=== PATIENT | female | born 1975 | race Two or more races ===

== ENCOUNTER 2023-06-24 13:10 | Emergency (ER) | payer MEDICAID, OTHER ==
[~2023-06-24] VITALS: Ht 149.9 cm; Wt 69.0 kg
[2023-06-24] MEDS ORDERED: LABETALOL HCL 5 MG/ML 4ML SYRINGE IV ONE ×3 (13:45→18:45)
[2023-06-24 14:55] LABS: Basophils # (auto) 0.1 10 ^3/uL (0-0.2); Basophils % (auto) 0.8 % (0.0-2.0); Eosinophils # (auto) 0.2 10 ^3/uL (0-0.8); Eosinophils % (auto) 1.7 % (0.0-7.0); Hematocrit 43.7 % (36.0-46.0); Hemoglobin 14.7 g/dL (12.2-16.2); Lymphocytes # (auto) 2.1 10 ^3/uL (0.4-5.4); Lymphocytes % (auto) 22.6 % (10.0-50.0); Mean Corpuscular Hemoglobin 28.3 pg (28.0-32.0); Mean Corpuscular Hgb Conc. 33.7 g/dL (32.0-36.0); Monocytes # (auto) 0.5 10 ^3/uL (0-1.3); Monocytes % (auto) 4.7 % (0.0-12.0); Neutrophils # (auto) 6.7 10 ^3/uL (1.6-8.6); Neutrophils % (auto) 70.2 % (37.0-80.0); Red Cell Distribution Width 13.7 % (11.8-14.3); White Blood Cell 9.5 10^3/uL (4.4-10.8)
[2023-06-24 15:00] LABS: Urine Bacteria MANY /hpf (None Seen); Urine Blood Negative /uL (Negative); Urine Clarity HAZY (Clear); Urine Color Yellow (Yellow); Urine Mucus FEW (None Seen); Urine Protein, UAD 2+ (Negative); Urine Specific Gravity 1.019 (1.001-1.035); Urine Urobilinogen Normal (Negative); Urine WBC 20 /hpf (0 - 5); Urine pH 6.5 (5.0-8.0)
[2023-06-24 15:16] LABS: Alanine Aminotransferase 61 U/L (7-40); Albumin 4.8 g/dL (3.2-4.8); Alkaline Phosphatase 129 U/L (46-116); Anion Gap 6 (5-15); Aspartate Aminotransferase 62 U/L (13-40); BUN/Creatinine Ratio 10.6 (10.0-20.0); Blood Urea Nitrogen 7 mg/dL (9-23); Calcium 9.4 mg/dL (8.7-10.4); Carbon Dioxide 27 mmol/L (20-30); Chloride 104 mmol/L (98-107); Glucose 209 mg/dL (74-106); Magnesium 1.6 mg/dL (1.6-2.6); Potassium 3.7 mmol/L (3.5-5.1); Sodium 137 mmol/L (136-145)
[2023-06-24 15:17] LABS: Bilirubin, Total 1.3 mg/dL (0.2-1.0); Total Protein 7.9 g/dL (5.7-8.2)
[2023-06-24 16:25] VITALS: PULSE 93; RESP 12; O2SAT 99
[2023-06-24] MEDS ORDERED: PRED20TA2 PO (16:29)
[2023-06-24] MEDS ORDERED: VALA500T33 PO (16:29)
[2023-06-24] MEDS ORDERED: NITR-87 PO (16:29)
[2023-06-24] MEDS ORDERED: predniSONE 20 MG TAB PO ONE (16:30)
[2023-06-24] MEDS ORDERED: HYDROcodone-ACET 5/325MG TAB PO ONE (18:45)
[2023-06-24 19:45] VITALS: PULSE 91; RESP 19; O2SAT 95
[2023-06-24] MEDS ORDERED: hydrALAZINE HCL 20 MG/ML VL IV ONE (20:30)
[2023-06-24 20:58] VITALS: TEMP 98
[2023-06-24 22:12] VITALS: BP 155/91; PULSE 85; RESP 15; O2SAT 95
== END 2023-06-24 22:20 | disposition home or self-care (01) ==
LOC: EDBD 13:10 → ER 13:10
DX: G51.0 Bell's palsy (principal); N39.0 Urinary tract infection, site not specified; E78.5 Hyperlipidemia, unspecified; E11.9 Type 2 diabetes mellitus without complications; I10 Essential (primary) hypertension; Z98.51 Tubal ligation status
CPT/HCPCS: 36415; 70450; 80053; 81001; 83735; 84484; 85025; 93005; 96374; 96375; 96376; 99285; J0360; J3490; J7512

== ENCOUNTER 2025-01-21 17:27 | Inpatient (IN) | payer MEDICAID ==
[~2025-01-21] VITALS: Ht 149.9 cm; Wt 70.5 kg
[~2025-01-21 17:27] MED LIST: NITR-87 PO; PRED20TA2 PO; VALA500T33 PO
--- NOTE | 2025-01-21 17:49 | ECG ---
[facility] Test Date: 2025-01-21 Test Time: 17:46:36 Pat Name: PARAG OLIVERA Department: ER Room: 0270T Gender: F Nursing Specialist: SOBIA : 1975 Requested By: RONNY BLISS Order Number: [id number] Reading MD: Tobin Maldonado Measurements Intervals [place] Rate: 89 P: 56 TN: 155 QRS: 19 QRSD: 74 T: -22 QT: 348 QTc: 424 Interpretive Statements Sinus rhythm Borderline T abnormalities, diffuse leads Electronically Signed On 01-26-2025 20:30:58 PDT by Tobin Maldonado Please click the below link to view image of tracing.
[2025-01-21 18:20] LABS: Basophils # (auto) 0.1 10 ^3/uL (0-0.2); Basophils % (auto) 0.8 % (0.0-2.0); Eosinophils # (auto) 0.1 10 ^3/uL (0-0.8); Eosinophils % (auto) 1.1 % (0.0-7.0); Hematocrit 45.2 % (36.0-46.0); Hemoglobin 15.5 g/dL (12.2-16.2); Lymphocytes # (auto) 3.1 10 ^3/uL (0.4-5.4); Lymphocytes % (auto) 30.9 % (10.0-50.0); Mean Corpuscular Hemoglobin 29.1 pg (28.0-32.0); Mean Corpuscular Hgb Conc. 34.3 g/dL (32.0-36.0); Mean Corpuscular Volume 84.9 fL (80.0-100.0); Monocytes # (auto) 0.5 10 ^3/uL (0-1.3); Monocytes % (auto) 4.6 % (0.0-12.0); Neutrophils # (auto) 6.2 10 ^3/uL (1.6-8.6); Neutrophils % (auto) 62.6 % (37.0-80.0); Nucleated Red Blood Cells % 0.1 %; Platelet Count (auto) 222 10^3/uL (140-450); Red Blood Cells 5.33 10^6/uL (4.0-5.20); Red Cell Distribution Width 13.4 % (11.8-14.3); White Blood Cell 9.9 10^3/uL (4.4-10.8)
[2025-01-21 18:37] VITALS: PULSE 84; RESP 15; O2SAT 97
[2025-01-21 18:38] LABS: Alanine Aminotransferase 33 U/L (7-40); Anion Gap 10 (5-15); Aspartate Aminotransferase 26 U/L (13-40); BUN/Creatinine Ratio 17.1 (10.0-20.0); Blood Urea Nitrogen 13 mg/dL (9-23); Carbon Dioxide 28 mmol/L (20-31); Chloride 104 mmol/L (98-107); Sodium 142 mmol/L (136-145)
--- NOTE | 2025-01-21 18:39 | ED.PDOC ---
HPI Comments 49 y/o F presents with c/o HTN, dizziness, bilateral upper and lower extremity numbness, and left-chest discomfort. Patient reports on having numbness to her extremities for the past 2 days. Today, she endorses worsening numbness to her left arm along with additional onset of chest discomfort and dizziness. Noticed her blood pressure being elevated at-home with at-home measuring device. Denies any palpitations, shortness of breath, nausea, vomiting, fever, chills, o r further associated symptoms. Vitals: temperature of 98.3F, pulse of 111, respiratory rate of 16, blood pressure of 151/104, SpO2 of 95%RA Past medical history: DM, HLD, HTN, arthritis, sciatica Past surgical history: tubal ligation OLIVERA: HPI: Poor Historian. REVIEW OF SYSTEMS: CONSTITUTIONAL: Denies acute: fever, diaphoresis, chills, generalized weakness. HEAD: Denies acute: headache, photophobia Eyes: Denies acute: Double vision, vision loss, eye pain, eye discharge. EARS: Denies acute: tinnitus, hearing loss, ear discharge, ear pain, THROAT: Denies acute: sore throat, swelling, difficulty swallowing , pain with swallowing, change in voice. NECK: Denies acute: neck pain, neck swelling, stiff neck. HEART: Denies acute : palpitations, LUNGS: Denies acute: SOB, wheezing, cough, hemoptysis ABDOMEN: Denies acute: abdominal pain, Nausea, Vomiting, diarrhea, melena , hematemesis, hematochezia SKIN: Denies acute: rash, redness, lesions, itchiness. EXTREMITIES: Denies acute: calf pain, , , weakness, denies pain in extremity. Denies acute: Low back pain. Neuro: Denies acute: focal neurological deficit, motor or sensory focal neurological deficit, tremors, seizure like activity, confusion, , change in mental status, loss of bowel or bladder function, cauda equina like symptoms. : Denies acute: dysuria, hematuria, flank pain, increase in urinary frequency. PSYCH: Denies acute: hallucination, suicidal ideation, homicidal ideation. FEMALE: Denies acute: abnormal vaginal bleeding, foul odor, unusual discharge. PHYSICAL EXAM: General: ----mild----acute distress, awake and alert. Head: normocephalic, atraumatic. Neck: supple, trachea is midline, no swelling. Throat: Normal phonation. Eyes:, no erythema, no purulent discharge, no proptosis, no icterus. Heart: regular rate, regular rhythm, no significant murmur appreciated. Lungs: no apparent respiratory distress, Able to speak in full sentences. No wheezing, no rhonchi, no crackles. No stridors Clear to auscultation bilaterally. Abdomen: non tender to palpation, non distended, soft, no guarding, no rebound, + bowel sounds. Neuro: Awake, Alert, oriented to name, self, situation, follows commands GCS=15. Speech is normal. Skin: no petechia, no purpura, no cyanosis, non-pale, not jaundice. Lower extremities: --no - Pitting edema no deformity, no focal swelling, no calf TTP. Makes eye contact. moves all four extremities. Face: no apparent facial droop. Ambulating in the ED independently. ED COURSE: Chief Complaint: Dizziness Time Seen by MD: 18:20 Reviewed Notes: Nurses Notes, Allergies Allergies: Coded Allergies: NO KNOWN ALLERGIES (Unverified , 06/24/23) Home Meds Active Scripts Nitrofurantoin Monohydrate Mac (Macrobid) 100 Mg Cap, 100 MG PO BID for 7 Days, #14 CAP Prov:RONNY BLISS DO 06/24/23 Valacyclovir Hcl (Valacyclovir Hcl) 500 Mg Tab, 1 TAB PO BID for 7 Days, #14 TAB 11 Refills Prov:RONNY BLISS DO 06/24/23 Prednisone (Prednisone) 20 Mg Tab, 60 MG PO DAILY for 6 Days, #18 TAB Prov:RONNY BLISS DO 06/24/23 Information Source: Patient Mode of Arrival: Ambulatory Past Medical History PAST MEDICAL HISTORY: DM, High Lipids, HTN Surgical History: Tubal Ligation 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 Was a procedure done?: No CP Differential Dx Differential Diagnosis: N/A Differential Diagnosis: Other (Ddx include but not limitied to gastritis, musculoskeletal pain, radiculopathy, atypical chest pain, dissection, aneurysm, ACS, unstable angina, hiatal hernia, GERD, anxiety, costochondritis, PE, pn eumothroax, neoplasm, cardiac ischemia, drug abuse, anemia.) X-Ray, Labs, Meds, VS Vital Signs Date Time Temp Pulse Resp B/P (MAP) Pulse Ox O2 Delivery O2 Flow Rate FiO2 01/21/25 21:04 98.7 77 16 141/90 (107) 99 98.7 01/21/25 21:00 77 141/90 01/21/25 18:57 82 150/94 01/21/25 18:39 89 01/21/25 18:37 84 15 97 Room Air* 0 21 01/21/25 18:36 82 16 150/94 (112) 94 01/21/25 17:46 89 01/21/25 17:45 98.3 111 16 151/104 (120) 95 98.3 Lab Test 01/21/25 21:31 01/21/25 20:53 01/21/25 18:55 01/21/25 18:00 Range/Units Urine Color Pending Urine Clarity Pending Urine pH Pending Urine Specific [place] Pending Urine Protein Pending Urine Ketones Pending Urine Blood Pending Urine Nitrite Pending Urine Bilirubin Pending Urine Urobilinogen Pending Urine Leukocyte Esterase Pending Urine RBC Pending Urine Microscopic WBC Pending Urine Squamous Epithelial Cells Pending Urine Bacteria Pending Urine Glucose Pending Troponin I High Sensitivity < 3 L < 3 L < 3 L </=34 ng/L White Blood Count 9.9 4.4-10.8 10^3/uL Red Blood Count 5.33 H 4.0-5.20 10^6/uL Hemoglobin 15.5 12.2-16.2 g/dL Hematocrit 45.2 36.0-46.0 % Mean Corpuscular Volume 84.9 80.0-100.0 fL Mean Corpuscular Hemoglobin 29.1 28.0-32.0 pg Mean Corpuscular Hemoglobin Concent 34.3 32.0-36.0 g/dL Red Cell Distribution Width 13.4 11.8-14.3 % Platelet Count 222 140-450 10^3/uL Mean Platelet Volume 10.1 6.9-10.8 fL Neutrophils (%) (Auto) 62.6 37.0-80.0 % Lymphocytes (%) (Auto) 30.9 10.0-50.0 % Monocytes (%) (Auto) 4.6 0.0-12.0 % Eosinophils (%) (Auto) 1.1 0.0-7.0 % Basophils (%) (Auto) 0.8 0.0-2.0 % Neutrophils # (Auto) 6.2 1.6-8.6 10 ^3/uL Lymphocytes # (Auto) 3.1 0.4-5.4 10 ^3/uL Monocytes # (Auto) 0.5 0-1.3 10 ^3/uL Eosinophils # (Auto) 0.1 0-0.8 10 ^3/uL Basophils # (Auto) 0.1 0-0.2 10 ^3/uL Nucleated Red Blood Cells 0.1 % Sodium Level 142 136-145 mmol/L Potassium Level 3.4 L 3.5-5.1 mmol/L Chloride Level 104 98-107 mmol/L Carbon Dioxide Level 28 20-31 mmol/L Anion Gap 10 5-15 Blood Urea Nitrogen 13 9-23 mg/dL Creatinine 0.76 0.550-1.02 mg/dL Glomerular Filtration Rate Calc 95 >90 mL/min BUN/Creatinine Ratio 17.1 10.0-20.0 Serum Glucose 129 H 74-106 mg/dL Calcium Level 10.8 H 8.7-10.4 mg/dL Magnesium Level 1.6 1.6-2.6 mg/dL Total Bilirubin 1.5 H 0.2-1.0 mg/dL Aspartate Amino Transferase (AST) 26 13-40 U/L Alanine Aminotransferase (ALT) 33 7-40 U/L Alkaline Phosphatase 118 H 46-116 U/L Total Protein 8.3 H 5.7-8.2 g/dL Albumin 5.1 H 3.2-4.8 g/dL Test 01/21/25 17:41 Range/Units POC Glucose 134 H 70-106 mg/dl Current Medications Medications (Trade) Dose Ordered Sig/Shon Route Start Time Stop Time Status Last Admin Labetalol HCl (Labetalol HCl) 5 mg ONCE ONCE IV 5/3/25 18:15 01/21/25 18:16 DC 01/21/25 18:57 Aspirin (Ecotrin Enteric Coated Tablet) 325 mg ONCE ONCE PO 01/21/25 18:30 01/21/25 18:31 DC 01/21/25 18:56 Sodium Chloride 500 ml @ 500 mls/hr Q1H ONCE IV 01/21/25 18:30 01/21/25 19:29 DC 01/21/25 18:57 [place] [id number] Ph: [phone] DIAGNOSTIC IMAGING Diagnostic Imaging Report : [id number] Signed PATIENT: PARAG OLIVERA ACCT: [id number] UNIT: [id number] : 1975 LOC: ER ROOM / BED: / AGE / SEX: 49 / F ADM STATUS: [facility] ER SERVICE 1730 ORDERING PHYSICIAN: RONNY BLISS DO PROCEDURE(s): CXRP - CHEST PORTABLE REASON: htn ORDER NUMBER(s): [id number], ACCESSION NUMBER(s): [id number] CHEST RADIOGRAPH Indication: htn Technique: Single frontal view of the chest was obtained Comparison: None FINDINGS: Lines and Tubes: None Lungs: No focal consolidation. Mild elevation of the right hemidiaphragm. Pleura: No effusion. No pneumothorax. Cardiomediastinal contours: Unremarkable Bones: No acute osseous abnormality. IMPRESSION: No acute cardiopulmonary disease. ATED BY: MIGDALIA MARTINO DO DICTATED DATE/TIME: 01/21/251857 SIGNED BY: MIGDALIA MARTINO DO SIGNED DATE/TIME: 01/21/251857 CC: Time of 1ST Reevaluation: 18:20 Reevaluation 1ST: Unchanged Patient Education/Counseling: Diagnosis, Treatment Family Education/Counseling: No Family Present Comments Patient presented with the above HPI.---chest pain---workup was initiated. patient was found with the above mentioned diagnosis. the following medications were ordered: please refer to order lists of meds and tests obtained by myself Dr. Bliss. Patient ED course and VS have been stabilized. Patient has been reassessed in the ED and remained in a stable condition. Pertinent incidental findings were discussed with the patient and/or family. Patient/family voices understanding and is agreeable with plan. Patient has been observed in the ED adequate length of time to insure improvement/stability. Escalation of care considered: Consideration of escalation to observation or admission Patient was ADMITTED to the medicine team for further evaluation and treatment of their presentation. All the reports of any imaging studies that were ordered by myself were reviewed by myself. Departure 1 Departure Time of Disposition: 21:16 Impression: Primary Impression: Chest pain at rest Disposition: ADMITTED INPATIENT Admit to: Tele Condition: Guarded Discharged With: Self Critical Care Note Critical Care Time?: No Heart Score Heart Score: Heart Score Response (Comments) Value History Moderate Suspicious 1 EKG Normal 0 Age 45-64 1 Risk Factors >3 or Hx ASHD 2 Troponin Normal limit 0 Total 4 I personally scribed for RONNY BLISS DO ([email or web address]) on 01/21/25 at 18:39. Electronically submitted by Claude Stokes ([email or web address]). I personally scribed for RONNY BLISS DO ([email or web address]) on 01/21/25 at 20:01. Electronically submitted by Claude Stokes ([email or web address]). RONNY BLISS DO January 21, 2025 18:39
[2025-01-21 18:43] LABS: Albumin 5.1 g/dL (3.2-4.8); Alkaline Phosphatase 118 U/L (46-116); Bilirubin, Total 1.5 mg/dL (0.2-1.0); Calcium 10.8 mg/dL (8.7-10.4); Glucose 129 mg/dL (74-106); Potassium 3.4 mmol/L (3.5-5.1); Total Protein 8.3 g/dL (5.7-8.2)
[2025-01-21] MEDS: ASPirin-EC 325mg tab PO ONE (18:56)
[2025-01-21] MEDS: SODIUM CHLORIDE 0.9% 500 ML IV ONE (18:57)
[2025-01-21] MEDS: LABETALOL HCL 20 MG/4 ML VL IV ONE (18:57)
[2025-01-21] MEDS: NITROGLYCERIN 0.4 MG SL TAB SL ONE (18:58)
--- NOTE | 2025-01-21 19:00 | DVH ---
CHEST RADIOGRAPH Indication: htn Technique: Single frontal view of the chest was obtained Comparison: None FINDINGS: Lines and Tubes: None Lungs: No focal consolidation. Mild elevation of the right hemidiaphragm. Pleura: No effusion. No pneumothorax. Cardiomediastinal contours: Unremarkable Bones: No acute osseous abnormality. IMPRESSION: No acute cardiopulmonary disease.
[2025-01-21] MEDS ORDERED: MORPHINE SULFATE INJ 2 MG/ml SYRG IV PRN ×2 (21:45)
[2025-01-21] MEDS ORDERED: DOCUSATE SOD 100 MG CAP PO PRN (21:45)
[2025-01-21] MEDS ORDERED: NITROGLYCERIN 0.4 MG SL TAB SL PRN (21:45)
[2025-01-21 21:58] LABS: Urine Bacteria MANY /hpf (None Seen); Urine Blood TRACE /uL (Negative); Urine Clarity Turbid (Clear); Urine Color Yellow (Yellow); Urine Mucus FEW (None Seen); Urine Protein, UAD 1+ (Negative); Urine Specific Gravity 1.025 (1.001-1.035); Urine Squamous Epithelial Cell FEW /hpf (<5); Urine Urobilinogen 3 mg/dL (Negative); Urine WBC 391 /HPF (0-5); Urine pH 5.5 (5.0-9.0)
[2025-01-21] MEDS: HYDROcodone-ACET 5/325MG TAB PO PRN (23:51)
[2025-01-22] VITALS (9 sets, daily range): BP systolic 104–156; BP diastolic 65–89; PULSE 62–87; RESP 16–20; TEMP 97.6–98.1; O2SAT 93–97
[2025-01-22] MEDS ORDERED: LISI20TA56 PO (02:36)
[2025-01-22] MEDS ORDERED: BACL20TA PO (02:36)
[2025-01-22] MEDS ORDERED: GLYB5TAB9 GT (02:36)
[2025-01-22] MEDS ORDERED: SITA50TA PO (02:36)
[2025-01-22] MEDS ORDERED: IBUP-1456 PO (02:36)
[2025-01-22] MEDS ORDERED: GABA-1308 PO (02:36)
[2025-01-22] MEDS ORDERED: ATOR20TA50 PO (02:36)
[2025-01-22] MEDS ORDERED: DULO20CA36 PO (02:36)
[2025-01-22 05:48] LABS: Basophils # (auto) 0.1 10 ^3/uL (0-0.2); Basophils % (auto) 0.7 % (0.0-2.0); Eosinophils # (auto) 0.2 10 ^3/uL (0-0.8); Eosinophils % (auto) 2.1 % (0.0-7.0); Hematocrit 41.2 % (36.0-46.0); Hemoglobin 13.8 g/dL (12.2-16.2); Lymphocytes # (auto) 3.8 10 ^3/uL (0.4-5.4); Mean Corpuscular Hemoglobin 28.6 pg (28.0-32.0); Mean Corpuscular Hgb Conc. 33.5 g/dL (32.0-36.0); Mean Corpuscular Volume 85.5 fL (80.0-100.0); Monocytes # (auto) 0.7 10 ^3/uL (0-1.3); Monocytes % (auto) 6.8 % (0.0-12.0); Neutrophils # (auto) 5.2 10 ^3/uL (1.6-8.6); Neutrophils % (auto) 52.4 % (37.0-80.0); Nucleated Red Blood Cells % 0.1 %; Platelet Count (auto) 206 10^3/uL (140-450); Red Blood Cells 4.82 10^6/uL (4.0-5.20); Red Cell Distribution Width 13.5 % (11.8-14.3); White Blood Cell 9.9 10^3/uL (4.4-10.8)
[2025-01-22 06:11] LABS: Alanine Aminotransferase 27 U/L (7-40); Alkaline Phosphatase 98 U/L (46-116); Anion Gap 11 (5-15); BUN/Creatinine Ratio 18.8 (10.0-20.0); Blood Urea Nitrogen 16 mg/dL (9-23); Calcium 10.3 mg/dL (8.7-10.4); Carbon Dioxide 28 mmol/L (20-31); Chloride 103 mmol/L (98-107); Sodium 142 mmol/L (136-145); Total Protein 7.2 g/dL (5.7-8.2)
[2025-01-22 06:12] LABS: Albumin 4.4 g/dL (3.2-4.8); Aspartate Aminotransferase 21 U/L (13-40)
[2025-01-22 06:13] LABS: Bilirubin, Total 1.1 mg/dL (0.2-1.0)
[2025-01-22 06:22] LABS: Glucose 209 mg/dL (74-106); Potassium 3.3 mmol/L (3.5-5.1)
--- NOTE | 2025-01-22 07:57 | DVHINCON2 ---
Date of service: January 22, 2025 History of Present Illness HPI The patient is a 49-year-old female who initially presented to the emergency department with hypertension, numbness in the extremities, and left-sided facial numbness, along with non-radiating chest discomfort on the left side. Initial electrocardiogram revealed normal sinus rhythm at a rate of 89 bpm, with no arrhythmias or ischemic changes noted. Serial high-sensitivity troponins were negative, with a value of <3 ng/L. Cardiology services consulted for cardiac aspects of care. Reported past medical history includes type 2 diabetes mellitus, hyperlipidemia, hypertension, arthritis, sciatica Home Meds Active Scripts Nitrofurantoin Monohydrate Mac (Macrobid) 100 Mg Cap, 100 MG PO BID for 7 Days, #14 CAP Prov:RONNY BLISS DO 06/24/23 Valacyclovir Hcl (Valacyclovir Hcl) 500 Mg Tab, 1 TAB PO BID for 7 Days, #14 TAB 11 Refills Prov:RONNY BLISS DO 06/24/23 Prednisone (Prednisone) 20 Mg Tab, 60 MG PO DAILY for 6 Days, #18 TAB Prov:RONNY BLISS DO 06/24/23 Reported Medications Ibuprofen (Ibuprofen) 800 Mg Tab, 1 TAB PO TID, #90 TAB 1 Refill 25 Baclofen (Baclofen) 20 Mg Tab, 1 TAB PO TID, #90 TAB 2 Refills 25 Duloxetine HCl (Duloxetine Hydrocloride) 20 Mg Cap, 20 MG PO, CAP 01/22/25 Gabapentin (Gabapentin) 100 Mg Cap, 1 CAP PO TID, #90 CAP 2 Refills 25 Atorvastatin Calcium (ATORVASTATIN CALCIUM) 20 Mg Tab, 1 TAB PO DAILY, #30 TAB 5 Refills 01/22/25 Lisinopril (Lisinopril) 20 Mg Tab, 1 TAB PO DAILY, #30 TAB 5 Refills 25 Glyburide (Micronase) 5 Mg Tb, 5 MG GT, TAB 01/22/25 Sitagliptin Phosphate (Januvia) 50 Mg Tab, 50 MG PO, TAB 01/22/25 Past Medical History Patient Family History: Diabetes mellitus G8 MOTHER FH: coronary artery bypass surgery G8 MOTHER Hypertension G8 MOTHER Thyroid disease G8 MOTHER Review of Systems Comments Review of Systems: A 14-point review of systems is negative unless otherwise noted above H&P Exam Vital Signs Vital Signs Date Time Temp Pulse Resp B/P (MAP) Pulse Ox O2 Delivery O2 Flow Rate FiO2 01/22/25 05:00 97.7 62 16 104/65 (78) 95 97.7 01/22/25 02:00 Room Air* 0 21 Comments Physical Exam: Heart: S1 and S2 present. The patient is in sinus rhythm. Lungs: Clear to auscultation Abdomen: Benign. Extremities: Distal pulses palpable, 2+. No evidence for peripheral edema CHEST RADIOGRAPH Indication: htn Technique: Single frontal view of the chest was obtained Comparison: None FINDINGS: Lines and Tubes: None Lungs: No focal consolidation. Mild elevation of the right hemidiaphragm. Pleura: No effusion. No pneumothorax. Cardiomediastinal contours: Unremarkable Bones: No acute osseous abnormality. IMPRESSION: No acute cardiopulmonary disease. CLINICAL INDICATION: CVA. BRAIN MRI COMPARISON: CT dated 06/24/2023. TECHNIQUE: Multisequence multiplanar MRI images of the brain were obtained witho ut contrast. FINDINGS: No acute infarct or hemorrhage. No mass or midline shift. Ventricles and sulci are within normal limits. Basal cisterns are patent. Cerebellum, brainstem, and midline structures are within normal limits. Mild mucosal thickening of the paranasal sinuses. Orbits are grossly unremarkable. IMPRESSION: No evidence of acute intracranial abnormality. Labs/Xrays Labs Test 01/22/25 04:36 01/21/25 21:31 01/21/25 20:53 01/21/25 18:00 Range/Units White Blood Count 9.9 4.4-10.8 10^3/uL Red Blood Count 4.82 4.0-5.20 10^6/uL Hemoglobin 13.8 12.2-16.2 g/dL Hematocrit 41.2 36.0-46.0 % Mean Corpuscular Volume 85.5 80.0-100.0 fL Mean Corpuscular Hemoglobin 28.6 28.0-32.0 pg Mean Corpuscular Hemoglobin Concent 33.5 32.0-36.0 g/dL Red Cell Distribution Width 13.5 11.8-14.3 % Platelet Count 206 140-450 10^3/uL Mean Platelet Volume 10.1 6.9-10.8 fL Neutrophils (%) (Auto) 52.4 37.0-80.0 % Lymphocytes (%) (Auto) 38.0 10.0-50.0 % Monocytes (%) (Auto) 6.8 0.0-12.0 % Eosinophils (%) (Auto) 2.1 0.0-7.0 % Basophils (%) (Auto) 0.7 0.0-2.0 % Neutrophils # (Auto) 5.2 1.6-8.6 10 ^3/uL Lymphocytes # (Auto) 3.8 0.4-5.4 10 ^3/uL Monocytes # (Auto) 0.7 0-1.3 10 ^3/uL Eosinophils # (Auto) 0.2 0-0.8 10 ^3/uL Basophils # (Auto) 0.1 0-0.2 10 ^3/uL Nucleated Red Blood Cells 0.1 % Sodium Level 142 136-145 mmol/L Potassium Level 3.3 L 3.5-5.1 mmol/L Chloride Level 103 98-107 mmol/L Carbon Dioxide Level 28 20-31 mmol/L Anion Gap 11 5-15 Blood Urea Nitrogen 16 9-23 mg/dL Creatinine 0.85 0.550-1.02 mg/dL Glomerular Filtration Rate Calc 83 >90 mL/min BUN/Creatinine Ratio 18.8 10.0-20.0 Serum Glucose 209 H 74-106 mg/dL Calcium Level 10.3 8.7-10.4 mg/dL Total Bilirubin 1.1 H 0.2-1.0 mg/dL Aspartate Amino Transferase (AST) 21 13-40 U/L Alanine Aminotransferase (ALT) 27 7-40 U/L Alkaline Phosphatase 98 46-116 U/L Total Protein 7.2 5.7-8.2 g/dL Albumin 4.4 3.2-4.8 g/dL Urine Color Yellow Yellow Urine Clarity Turbid H Clear Urine pH 5.5 5.0-9.0 Urine Specific [place] 1.025 1.001-1.035 Urine Protein 1+ H Negative Urine Ketones 1+ H Negative Urine Blood Trace H Negative /uL Urine Nitrite Negative Negative Urine Bilirubin Negative Negative Urine Urobilinogen 3 H Negative mg/dL Urine Leukocyte Esterase 3+ Negative /uL Urine RBC 9 0 - 4 /hpf Urine Microscopic WBC 391 H 0-5 /HPF Urine Squamous Epithelial Cells Few <5 /hpf Urine Bacteria Many H None Seen /hpf Urine Mucus Few None Seen Urine Glucose Normal Normal mg/dL Troponin I High Sensitivity < 3 L </=34 ng/L Magnesium Level 1.6 1.6-2.6 mg/dL Test 01/21/25 17:41 Range/Units POC Glucose 134 H 70-106 mg/dl Assessment/Plan Primary Diagnosis Urinary tract infection Atypical chest pain Diabetes Mellitus ll Hyperlipidemia Hypertension Plan Cardiology recommendations: Awaiting results for 2D Echocardiogram w/bubble study Proceed with close rate and rhythm surveillance Proceed with close hemodynamic surveillance Proceed with optimized blood pressure control Transfuse to sustain HGB levels above 7.0 Sustain Magnesium level greater than 2.0 Sustain Potassium level greater than 4.0 Follow up renal function and electrolytes Management in Telemetry Will proceed to follow from a cardiac perspective Further recommendations per clinical progression All available labs, EKGs, and images were personally reviewed Patient's status, findings, and plan of care was discussed and reviewed with supervising physician Dr. Christensen, who is in agreement with current plan of care. Plan of care discussed with and agreed upon by patient/Primary RN. Prognosis: Guarded Thank you for allowing me to participate in the care of this patient. Further recommendations will depend on clinical progression, hospitalist, and other consultants. Will continue to follow with Primary. If you have any questions, please do not hesitate to contact me. A total of 75 minutes was spent reviewing the patient record, examining the patient, making a diagnostic and therapeutic plan, discussing this plan with medical personnel, following up on diagnostic studies and following the patient for clinical stability excluding any and all procedures. At least 50% of this time was spent in direct, [id number] contact. Plan discussed with: Patient IRWIN MCCLELLAN NP January 22, 2025 07:57
[2025-01-22] MEDS ORDERED: DEXTROSE (50%) 50ML SYRG IV PRN (11:15)
[2025-01-22] MEDS: ACCU-CHEK COMFORT CURVE STRIP VI SCH (11:30)
--- NOTE | 2025-01-22 11:39 | DVH ---
CLINICAL INDICATION: CVA. COMPARISON: CT dated 06/24/2023. TECHNIQUE: Multisequence multiplanar MRI images of the brain were obtained without contrast. FINDINGS: No acute infarct or hemorrhage. No mass or midline shift. Ventricles and sulci are within normal limits. Basal cisterns are patent. Cerebellum, brainstem, and midline structures are within no rmal limits. Mild mucosal thickening of the paranasal sinuses. Orbits are grossly unremarkable. IMPRESSION: No evidence of acute intracranial abnormality.
[2025-01-22 11:46] LABS: LDL Cholesterol 82 mg/dL (< 100)
[2025-01-22 11:47] LABS: Cholesterol 137 mg/dL (< 200)
[2025-01-22 11:50] LABS: HDL Cholesterol 36 mg/dL (40-59); Triglycerides 161 mg/dL (< 150)
[2025-01-22] MEDS: PANTOPRAZOLE 40 MG TAB PO SCH (12:52)
[2025-01-22] MEDS: ENOXAPARIN SOD 40 MG/0.4 ML SYRINGE SC SCH (12:53)
[2025-01-22] MEDS: InsuLIN REG 1unit/0.01ml Soln (100units/ml) SC SCH ×2 (12:54→21:39)
--- NOTE | 2025-01-22 18:12 | DVHHP2 ---
Admitting Diagnosis: Chest pain History of Present Illness 49 year old female is complaining of chest pain with extremity numbness for two days. Patient states today she started experiencing dizziness. She took her blood pressure at home and was noted to be elevated. While in the emergency department the patient was evaluated by the provider. Patient will be admitted for further evaluation and treatment. I discussed admission with the patient/family and is in agreement to treatment plan. Patient Family History: Diabetes mellitus G8 MOTHER FH: coronary artery bypass surgery G8 MOTHER Hypertension G8 MOTHER Thyroid disease G8 MOTHER Allergies: Coded Allergies: NO KNOWN ALLERGIES (Unverified , 06/24/23) Home Meds Active Scripts Nitrofurantoin Monohydrate Mac (Macrobid) 100 Mg Cap, 100 MG PO BID for 7 Days, #14 CAP Prov:RONNY BLISS DO 06/24/23 Valacyclovir Hcl (Valacyclovir Hcl) 500 Mg Tab, 1 TAB PO BID for 7 Days, #14 TAB 11 Refills Prov:RONNY BLISS DO 06/24/23 Prednisone (Prednisone) 20 Mg Tab, 60 MG PO DAILY for 6 Days, #18 TAB Prov:RONNY BLISS DO 06/24/23 Reported Medications Ibuprofen (Ibuprofen) 800 Mg Tab, 1 TAB PO TID, #90 TAB 1 Refill 01/22/25 Baclofen (Baclofen) 20 Mg Tab, 1 TAB PO TID, #90 TAB 2 Refills 01/22/25 Duloxetine HCl (Duloxetine Hydrocloride) 20 Mg Cap, 20 MG PO, CAP 01/22/25 Gabapentin (Gabapentin) 100 Mg Cap, 1 CAP PO TID, #90 CAP 2 Refills 01/22/25 Atorvastatin Calcium (ATORVASTATIN CALCIUM) 20 Mg Tab, 1 TAB PO DAILY, #30 TAB 5 Refills 01/22/25 Lisinopril (Lisinopril) 20 Mg Tab, 1 TAB PO DAILY, #30 TAB 5 Refills 01/22/25 Glyburide (Micronase) 5 Mg Tb, 5 MG GT, TAB 01/22/25 Sitagliptin Phosphate (Januvia) 50 Mg Tab, 50 MG PO, TAB 01/22/25 Current Medications Current Medications Medications (Trade) Dose Ordered Sig/Shon Route PRN Reason Start Time Stop Time Status Last Admin Acetaminophen (Tylenol Tablet) 325 mg Q4HP PRN PO MILD PAIN (1-3 PAIN SCALE) 01/21/25 21:45 Acetaminophen/ Hydrocodone Bitart ([place] 5/325MG Tab) 1 tab Q4HP PRN PO MODERATE PAIN (4-6 PAIN SCALE) 01/21/25 21:45 01/21/25 23:51 Ondansetron HCl (Zofran) 4 mg Q4HP PRN IV NAUSEA / VOMITING 01/21/25 21:45 Docusate Sodium (Colace Capsule) 100 mg BIDPRN PRN PO FOR CONSTIPATION 01/21/25 21:45 Morphine Sulfate 2 mg Q4HPRN PRN IV SEVERE PAIN (7-10 PAIN SCALE) 01/21/25 21:45 Nitroglycerin (Ntrostat Sublingual) 0.4 mg Q5MINP PRN SL FOR CHEST PAIN 01/21/25 21:45 Morphine Sulfate 2 mg Q30M PRN IV FOR CHEST PAIN 01/21/25 21:45 Diagnostic Test (Pha) (Accu-Chek Comfort Curve T) 1 strip ACHS 01/22/25 11:30 01/22/25 16:37 Insulin Human Regular (InsuLIN R) HS SC 01/22/25 22:00 Insulin Human Regular (InsuLIN R) AC SC 01/22/25 11:30 01/22/25 16:38 Dextrose 50 ml UD PRN IV Blood Sugar LESS THAN 60 01/22/25 11:15 Pantoprazole Sodium (Protonix Tablet) 40 mg DAILY@0700 PO 01/22/25 11:15 01/22/25 12:52 Enoxaparin Sodium (Lovenox) 40 mg DAILY SC 01/22/25 11:23 01/22/25 12:53 Review of Systems Chest pain Dizziness Vital Signs Vital Signs Date Time Temp Pulse Resp B/P (MAP) Pulse Ox O2 Delivery O2 Flow Rate FiO2 01/22/25 16:46 98.1 72 16 132/71 (91) 96 98.1 01/22/25 08:00 Room Air* 0 21 Physical Exam General Appearance: alert, no distress HEENT: EOMI, PERRLA, normal external inspect of ears, no icterus, no nasal drainage Neck: no carotid bruit, no jugular venous distention (JVD), no lymphadenopathy Chest: normal thorax Respiratory: clear to auscultation, normal air movement Cardiovascular: regular rate and rhythm, no diastolic murmur, no jugular venous distention (JVD), no rub, no systolic murmur Abdominal: soft, no hepatomegaly, no mass, no splenomegaly, no tenderness Musculoskeletal: no joint tenderness, no swelling Extremities: normal pulses, no calf tenderness, no clubbing, no cyanosis, no edema Skin: no bruising, no jaundice, no rash Neurological: alert, No focal deficit Results Labs Test 01/22/25 16:25 01/22/25 04:36 01/21/25 21:31 01/21/25 20:53 Range/Units POC Glucose 175 H 70-106 mg/dl White Blood Count 9.9 4.4-10.8 10^3/uL Red Blood Count 4.82 4.0-5.20 10^6/uL Hemoglobin 13.8 12.2-16.2 g/dL Hematocrit 41.2 36.0-46.0 % Mean Corpuscular Volume 85.5 80.0-100.0 fL Mean Corpuscular Hemoglobin 28.6 28.0-32.0 pg Mean Corpuscular Hemoglobin Concent 33.5 32.0-36.0 g/dL Red Cell Distribution Width 13.5 11.8-14.3 % Platelet Count 206 140-450 10^3/uL Mean Platelet Volume 10.1 6.9-10.8 fL Neutrophils (%) (Auto) 52.4 37.0-80.0 % Lymphocytes (%) (Auto) 38.0 10.0-50.0 % Monocytes (%) (Auto) 6.8 0.0-12.0 % Eosinophils (%) (Auto) 2.1 0.0-7.0 % Basophils (%) (Auto) 0.7 0.0-2.0 % Neutrophils # (Auto) 5.2 1.6-8.6 10 ^3/uL Lymphocytes # (Auto) 3.8 0.4-5.4 10 ^3/uL Monocytes # (Auto) 0.7 0-1.3 10 ^3/uL Eosinophils # (Auto) 0.2 0-0.8 10 ^3/uL Basophils # (Auto) 0.1 0-0.2 10 ^3/uL Nucleated Red Blood Cells 0.1 % Sodium Level 142 136-145 mmol/L Potassium Level 3.3 L 3.5-5.1 mmol/L Chloride Level 103 98-107 mmol/L Carbon Dioxide Level 28 20-31 mmol/L Anion Gap 11 5-15 Blood Urea Nitrogen 16 9-23 mg/dL Creatinine 0.85 0.550-1.02 mg/dL Glomerular Filtration Rate Calc 83 >90 mL/min BUN/Creatinine Ratio 18.8 10.0-20.0 Serum Glucose 209 H 74-106 mg/dL Hemoglobin A1c 9.9 H <5.7 % A1C Calcium Level 10.3 8.7-10.4 mg/dL Total Bilirubin 1.1 H 0.2-1.0 mg/dL Aspartate Amino Transferase (AST) 21 13-40 U/L Alanine Aminotransferase (ALT) 27 7-40 U/L Alkaline Phosphatase 98 46-116 U/L Total Protein 7.2 5.7-8.2 g/dL Albumin 4.4 3.2-4.8 g/dL Triglycerides Level 161 H < 150 mg/dL Cholesterol Level 137 < 200 mg/dL LDL Cholesterol 82 < 100 mg/dL HDL Cholesterol 36 L 40-59 mg/dL Urine Color Yellow Yellow Urine Clarity Turbid H Clear Urine pH 5.5 5.0-9.0 Urine Specific [place] 1.025 1.001-1.035 Urine Protein 1+ H Negative Urine Ketones 1+ H Negative Urine Blood Trace H Negative /uL Urine Nitrite Negative Negative Urine Bilirubin Negative Negative Urine Urobilinogen 3 H Negative mg/dL Urine Leukocyte Esterase 3+ Negative /uL Urine RBC 9 0 - 4 /hpf Urine Microscopic WBC 391 H 0-5 /HPF Urine Squamous Epithelial Cells Few <5 /hpf Urine Bacteria Many H None Seen /hpf Urine Mucus Few None Seen Urine Glucose Normal Normal mg/dL Troponin I High Sensitivity < 3 L </=34 ng/L Test 01/21/25 18:00 Range/Units Magnesium Level 1.6 1.6-2.6 mg/dL Primary Diagnosis - Unstable angina Cardiology consult, trend troponin, medication, monitoring -Hyperlipidemia Lipid panel -Benign essential hypertension Cardiology consult, antihypertensives, monitoring -Obesity - Acute cystitis with hematuria IV antibiotics, monitoring -DM type II with hyperglycemia Insulin sliding scale, diet, medications, monitoring Plan discussed with: Patient, Other LAVONNE ANSARI NP January 22, 2025 18:12
--- NOTE | 2025-01-22 18:14 | DVHPN2 ---
Progress Note - Dictate Date Seen: January 22, 2025 Medical Necessity Reason Pt with a Central, PICC or Fol: No vital signs Vital Sign Date Time Temp Pulse Resp B/P (MAP) Pulse Ox O2 Delivery O2 Flow Rate FiO2 01/22/25 16:46 98.1 72 16 132/71 (91) 96 98.1 01/22/25 08:00 Room Air* 0 21 Total Intake and Output 01/21/25 01/21/25 01/22/25 15:00 23:00 07:00 Intake Total 500 ml 350 ml Balance 500 ml 350 ml medications Current Medications Medications Dose Ordered Sig/Shon Route Start Time Stop Time Status Last Admin Dose Admin Acetaminophen 325 mg Q4HP PRN PO 01/21/25 21:45 Acetaminophen/ Hydrocodone Bitart 1 tab Q4HP PRN PO 01/21/25 21:45 01/21/25 23:51 Ondansetron HCl 4 mg Q4HP PRN IV 01/21/25 21:45 Docusate Sodium 100 mg BIDPRN PRN PO 01/21/25 21:45 Morphine Sulfate 2 mg Q4HPRN PRN IV 01/21/25 21:45 Nitroglycerin 0.4 mg Q5MINP PRN SL 01/21/25 21:45 Morphine Sulfate 2 mg Q30M PRN IV 01/21/25 21:45 Diagnostic Test (Pha) 1 strip ACHS 01/22/25 11:30 01/22/25 16:37 Insulin Human Regular HS SC 01/22/25 22:00 Insulin Human Regular AC SC 01/22/25 11:30 01/22/25 16:38 Dextrose 50 ml UD PRN IV 01/22/25 11:15 Pantoprazole Sodium 40 mg DAILY@0700 PO 01/22/25 11:15 01/22/25 12:52 Enoxaparin Sodium 40 mg DAILY SC 01/22/25 11:23 01/22/25 12:53 objective General Appearance: alert, no distress HEENT: EOMI, PERRLA, normal external inspect of ears, no icterus, no nasal drainage Neck: no carotid bruit, no jugular venous distention (JVD), no lymphadenopathy Chest: normal thorax Respiratory: clear to auscultation, normal air movement Cardiovascular: regular rate and rhythm, no diastolic murmur, no jugular venous distention (JVD), no rub, no systolic murmur Abdominal: soft, no hepatomegaly, no mass, no splenomegaly, no tenderness Musculoskeletal: no joint tenderness, no swelling Extremities: normal pulses, no calf tenderness, no clubbing, no cyanosis, no edema Skin: no bruising, no jaundice, no rash Neurological: alert, No focal deficit laboratory and microbiology Laboratory Tests 01/22/25 04:36 Test 01/22/25 04:36 Range/Units Serum Glucose 209 H 74-106 mg/dL Problem List - Unstable angina Cardiology consult, trend troponin, medication, monitoring -Hyperlipidemia Lipid panel -Benign essential hypertension Cardiology consult, antihypertensives, monitoring -Obesity - Acute cystitis with hematuria IV antibiotics, monitoring -DM type II with hyperglycemia Insulin sliding scale, diet, medications, monitoring Assessment/Plan Subjective Patient is awake and alert. Objective Patient was admitted for unstable angina. Patient will be seen by cardiology. Plan Cardiology evaluation in progress. Echocardiogram is ordered. Continue PPI and DVT prophylaxis. Continue insulin sliding scale for diabetes. Patient has acute cystitis. Continue antibiotics. Plan discussed with: Patient, Other LAVONNE ANSARI NP January 22, 2025 18:13
[2025-01-22] MEDS: ACETAMINOPHEN 325 MG TAB PO PRN (20:05)
[2025-01-23] VITALS (10 sets, daily range): BP systolic 115–161; BP diastolic 70–93; PULSE 69–107; RESP 16–18; TEMP 97.7–98.3; O2SAT 94–99
--- NOTE | 2025-01-23 08:07 | DVHPN2 ---
Progress Note - Dictate Date Seen: January 23, 2025 Medical Necessity Reason Pt with a Central, PICC or Fol: No vital signs Vital Sign Date Time Temp Pulse Resp B/P (MAP) Pulse Ox O2 Delivery O2 Flow Rate FiO2 01/23/25 05:00 97.8 70 18 137/84 (101) 96 97.8 01/22/25 20:00 Room Air* 0 21 Total Intake and Output 01/22/25 01/22/25 01/23/25 15:00 23:00 07:00 Intake Total 700 ml 600 ml Balance 700 ml 600 ml medications Current Medications Medications Dose Ordered Sig/Shon Route Start Time Stop Time Status Last Admin Dose Admin Acetaminophen 325 mg Q4HP PRN PO 01/21/25 21:45 01/22/25 20:05 325 MG Acetaminophen/ Hydrocodone Bitart 1 tab Q4HP PRN PO 01/21/25 21:45 01/21/25 23:51 1 TAB Ondansetron HCl 4 mg Q4HP PRN IV 01/21/25 21:45 Docusate Sodium 100 mg BIDPRN PRN PO 01/21/25 21:45 Morphine Sulfate 2 mg Q4HPRN PRN IV 01/21/25 21:45 Nitroglycerin 0.4 mg Q5MINP PRN SL 01/21/25 21:45 Morphine Sulfate 2 mg Q30M PRN IV 01/21/25 21:45 Diagnostic Test (Pha) 1 strip ACHS 01/22/25 11:30 01/23/25 06:05 1 STRIP Insulin Human Regular HS SC 01/22/25 22:00 Insulin Human Regular AC SC 01/22/25 11:30 01/22/25 16:38 3 UNITS Dextrose 50 ml UD PRN IV 01/22/25 11:15 Pantoprazole Sodium 40 mg DAILY@0700 PO 01/22/25 11:15 01/23/25 06:05 40 MG Enoxaparin Sodium 40 mg DAILY SC 01/22/25 11:23 01/22/25 12:53 40 MG laboratory and microbiology Laboratory Tests 01/22/25 04:36 Test 01/22/25 04:36 Range/Units Serum Glucose 209 H 74-106 mg/dL Assessment/Plan ASSESSMENT: Cerebral vascular accident ruled out by MRI Brain Urinary tract infection Atypical chest pain Diabetes Mellitus ll Hyperlipidemia Hypertension CARDIAC SUGGESTIONS FOR MANAGEMENT: Echocardiogram: revealed lvef 55%. normal LV function. normal RV function, RV enlarged. no severe valve abnormalities noted. normal atria. normal pericardium MRI Brain: revealed no evidence for acute cerebral vascular accident On IV antibiotic therapy as per primary team Lisinopril 20mg twice daily for hypertension On Lovenox for DVT prophylaxis On PPI for GI prophylaxis Proceed with close rate and rhythm surveillance Proceed with close hemodynamic surveillance Proceed with optimized blood pressure control Transfuse to sustain HGB level above 7.0 Sustain Magnesium level greater than 2.0 Sustain Potassium level greater than 4.0 Follow up renal function and electrolytes Management in telemetry Follow up data power consultant recommendations Will proceed to follow from a cardiac perspective Further recommendations per clinical progression Cardiac-marin, stable and can be managed outpatient All available diagnostic labs, EKG's, and images were personally reviewed Patient's status, findings, and plan of care was reviewed and discussed with supervising physician Dr. Christensen, who is in agreement with current plan of care. Plan of care discussed with and agreed upon by patient / primary RN Prognosis: Guarded Thank you for allowing me to participate in the care of this patient. Further recommendations based on patients clinical course and progression, primary attending, and other consultants. Will continue to follow with primary attending. If you have any questions or concerns, please do not hesitate to contact me. A total of 75 minutes was spent reviewing the patient record, examining the patient, making a diagnostic and therapeutic plan, discussing this plan with medical personnel, following up on diagnostic studies and following the patient for clinical stability excluding any and all procedures. At least 50% of this time was spent in direct, [id number] contact. Plan discussed with: Patient LISA SINGH January 23, 2025 08:07
--- NOTE | 2025-01-23 08:18 | DVHSR ---
APPROVED REPORT EXAM: Two-dimensional and M-mode echocardiogram with Doppler, color Doppler and Bubble Study. Blood Pressure: 104/65 mmHg INDICATION R/O Cardioembolic Source RISK FACTORS Height: 4' 11", Weight: 151 DIMENSIONS LVDd4.5 (3.8-5.7cm)LA (2D)3.4 (1.9-4.0cm)Aortic Root2.9 (2.0-3.7cm) LVDs3.1 (2.5-4.0cm)LA (MM) (1.9-4.0cm)Aortic Cusp Exc1.8 (1.5-2.0cm) EF (%) 60.0 (55-70%)Rt. Atrium3.2 (1.9-4.0cm)Asc. Aorta cm IVSd1.1 (0.7-1.1cm)RV (D) (1.8-2.4cm) PWd1.0 (0.7-1.1cm) Mitral Valve MitralMitral Stenosis E wave0.80m/sMV Mean GR.mmHg A wave0.80m/sMV Peak GR.mmHg E/A ratio1.02D MVAcm2 Aortic Valve Aortic ValveAortic Stenosis V10.70m/Matt Mean GR.3mmHg V21.20m/Matt Peak GR.6mmHg LVOT Diameter2.2 (1.8-2.4cm)Doppler AVA2.22cm2 Pulmonic Valve V20.50m/s Conclusion lvef 55% normal LV function normal RV function, RV enlarged no severe valve abnormalities noted normal atria normal pericardium
--- NOTE | 2025-01-23 09:04 | DVHPN2 ---
Progress Note - Dictate Date Seen: January 23, 2025 Medical Necessity Reason Pt with a Central, PICC or Fol: No vital signs Vital Sign Date Time Temp Pulse Resp B/P (MAP) Pulse Ox O2 Delivery O2 Flow Rate FiO2 01/23/25 05:00 97.8 70 18 137/84 (101) 96 97.8 01/22/25 20:00 Room Air* 0 21 Total Intake and Output 01/22/25 01/22/25 01/23/25 15:00 23:00 07:00 Intake Total 700 ml 600 ml Balance 700 ml 600 ml medications Current Medications Medications Dose Ordered Sig/Shon Route Start Time Stop Time Status Last Admin Dose Admin Acetaminophen 325 mg Q4HP PRN PO 01/21/25 21:45 01/22/25 20:05 325 MG Acetaminophen/ Hydrocodone Bitart 1 tab Q4HP PRN PO 01/21/25 21:45 01/21/25 23:51 1 TAB Ondansetron HCl 4 mg Q4HP PRN IV 01/21/25 21:45 Docusate Sodium 100 mg BIDPRN PRN PO 01/21/25 21:45 Morphine Sulfate 2 mg Q4HPRN PRN IV 01/21/25 21:45 Nitroglycerin 0.4 mg Q5MINP PRN SL 01/21/25 21:45 Morphine Sulfate 2 mg Q30M PRN IV 01/21/25 21:45 Diagnostic Test (Pha) 1 strip ACHS 01/22/25 11:30 01/23/25 06:05 1 STRIP Insulin Human Regular HS SC 01/22/25 22:00 Insulin Human Regular AC SC 01/22/25 11:30 01/22/25 16:38 3 UNITS Dextrose 50 ml UD PRN IV 01/22/25 11:15 Pantoprazole Sodium 40 mg DAILY@0700 PO 01/22/25 11:15 01/23/25 06:05 40 MG Enoxaparin Sodium 40 mg DAILY SC 01/22/25 11:23 01/22/25 12:53 40 MG objective General Appearance: alert, no distress HEENT: EOMI, PERRLA, normal external inspect of ears, no icterus, no nasal drainage Neck: no carotid bruit, no jugular venous distention (JVD), no lymphadenopathy Chest: normal thorax Respiratory: clear to auscultation, normal air movement Cardiovascular: regular rate and rhythm, no diastolic murmur, no jugular venous distention (JVD), no rub, no systolic murmur Abdominal: soft, no hepatomegaly, no mass, no splenomegaly, no tenderness Musculoskeletal: no joint tenderness, no swelling Extremities: normal pulses, no calf tenderness, no clubbing, no cyanosis, no edema Skin: no bruising, no jaundice, no rash Neurological: alert, No focal deficit laboratory and microbiology Laboratory Tests 01/22/25 04:36 Test 01/22/25 04:36 Range/Units Serum Glucose 209 H 74-106 mg/dL Problem List - Unstable angina Cardiology consult, trend troponin, medication, monitoring -Hyperlipidemia Lipid panel -Benign essential hypertension Cardiology consult, antihypertensives, monitoring -Obesity - Acute cystitis with hematuria IV antibiotics, monitoring -DM type II with hyperglycemia Insulin sliding scale, diet, medications, monitoring Assessment/Plan Subjective: Patient is awake. Objective: Patient was admitted for unstable angina and uncontrolled blood pressure. Antihypertensives were adjusted. She also complains of paresthesia in her left arm. MRI is negative for CVA. Plan: Obtain C-spine x-ray to rule out cervical spinal stenosis. Continue lisinopril 20 mg p.o. twice daily. Patient denies dizziness at this time. Discharge planning for tomorrow if cleared by cardiology. Plan discussed with: Patient, Other LAVONNE ANSARI NP January 23, 2025 09:04
[2025-01-23] MEDS: LISINOPRIL 20 MG TAB PO SCH (10:34)
[2025-01-23] MEDS: cefTRIAXone 1GM/50ML D5W 50 ML IV SCH (10:34)
[2025-01-23] MEDS: hydrALAZINE HCL 20 MG/ML VL IV PRN (12:47)
[2025-01-23] MEDS: ONDANSETRON HCL 4 MG/2 ML VIAL IV PRN (12:47)
--- NOTE | 2025-01-23 14:23 | DVH ---
INDICATION: numbness left arm TECHNIQUE: 3 views of the cervical spine were obtained. COMPARISON: None FINDINGS: The cervical spine is visualized from C1-C7. There is loss of the normal cervical lordosis which can be positional. No fractures or subluxations are identified. Alignment appears unremarkable. Prevertebral soft tissues are within normal limits. IMPRESSION: 1. No evidence for fracture or subluxation.
[2025-01-24] VITALS (7 sets, daily range): BP systolic 101–141; BP diastolic 43–77; PULSE 65–88; RESP 17–18; TEMP 97.8–98; O2SAT 0–97
--- NOTE | 2025-01-24 05:12 | DVHPN2 ---
Progress Note - Dictate Date Seen: January 24, 2025 Medical Necessity Reason Pt with a Central, PICC or Fol: No vital signs Vital Sign Date Time Temp Pulse Resp B/P (MAP) Pulse Ox O2 Delivery O2 Flow Rate FiO2 01/24/25 01:00 97.8 72 18 117/73 (88) 97 97.8 101/77 (85) 108/68 (81) 01/23/25 20:00 Room Air* 0 21 Total Intake and Output 01/23/25 01/23/25 01/24/25 15:00 23:00 07:00 Intake Total 50 ml 600 ml Balance 50 ml 600 ml medications Current Medications Medications Dose Ordered Sig/Shon Route Start Time Stop Time Status Last Admin Dose Admin Acetaminophen 325 mg Q4HP PRN PO 01/21/25 21:45 01/22/25 20:05 325 MG Acetaminophen/ Hydrocodone Bitart 1 tab Q4HP PRN PO 01/21/25 21:45 01/23/25 21:52 1 TAB Ondansetron HCl 4 mg Q4HP PRN IV 01/21/25 21:45 01/23/25 12:47 4 MG Docusate Sodium 100 mg BIDPRN PRN PO 01/21/25 21:45 Morphine Sulfate 2 mg Q4HPRN PRN IV 01/21/25 21:45 Nitroglycerin 0.4 mg Q5MINP PRN SL 01/21/25 21:45 Morphine Sulfate 2 mg Q30M PRN IV 01/21/25 21:45 Diagnostic Test (Pha) 1 strip ACHS 01/22/25 11:30 01/23/25 23:53 1 STRIP Insulin Human Regular HS SC 01/22/25 22:00 Insulin Human Regular AC SC 01/22/25 11:30 01/23/25 17:31 3 UNITS Dextrose 50 ml UD PRN IV 01/22/25 11:15 Pantoprazole Sodium 40 mg DAILY@0700 PO 01/22/25 11:15 01/23/25 06:05 40 MG Enoxaparin Sodium 40 mg DAILY SC 01/22/25 11:23 01/23/25 10:34 40 MG Ceftriaxone Sodium 50 ml @ 100 mls/hr DAILY@09 IV 01/23/25 09:15 01/23/25 10:34 100 MLS/HR Lisinopril 20 mg BID PO 01/23/25 10:00 01/23/25 21:51 20 MG Hydralazine HCl 10 mg Q6HP PRN IV 01/23/25 09:15 01/23/25 12:47 10 MG laboratory and microbiology Laboratory Tests 01/22/25 04:36 Test 01/22/25 04:36 Range/Units Serum Glucose 209 H 74-106 mg/dL Assessment/Plan ASSESSMENT: Cerebral vascular accident ruled out by MRI Brain Urinary tract infection Atypical chest pain Diabetes Mellitus ll Hyperlipidemia Hypertension CARDIAC SUGGESTIONS FOR MANAGEMENT: Echocardiogram: revealed lvef 55%. normal LV function. normal RV function, RV enlarged. no severe valve abnormalities noted. normal atria. normal pericardium MRI Brain: revealed no evidence for acute cerebral vascular accident On IV antibiotic therapy as per primary team Lisinopril 20mg twice daily for hypertension On Lovenox for DVT prophylaxis On PPI for GI prophylaxis Proceed with close rate and rhythm surveillance Proceed with close hemodynamic surveillance Proceed with optimized blood pressure control Transfuse to sustain HGB level above 7.0 Sustain Magnesium level greater than 2.0 Sustain Potassium level greater than 4.0 Follow up renal function and electrolytes Management in telemetry Follow up regulatory consultant recommendations Will proceed to follow from a cardiac perspective Further recommendations per clinical progression Cardiac-marin, stable and can be managed outpatient All available diagnostic labs, EKG's, and images were personally reviewed Patient's status, findings, and plan of care was reviewed and discussed with supervising physician Dr. Christensen, who is in agreement with current plan of care. Plan of care discussed with and agreed upon by patient / primary RN Prognosis: Guarded Thank you for allowing me to participate in the care of this patient. Further recommendations based on patients clinical course and progression, primary attending, and other consultants. Will continue to follow with primary attending. If you have any questions or concerns, please do not hesitate to contact me. A total of 75 minutes was spent reviewing the patient record, examining the patient, making a diagnostic and therapeutic plan, discussing this plan with medical personnel, following up on diagnostic studies and following the patient for clinical stability excluding any and all procedures. At least 50% of this time was spent in direct, [id number] contact. Plan discussed with: Patient FRANCISCOLISA OLMSTEAD Berry COLON January 24, 2025 05:12
[2025-01-24] MEDS ORDERED: LISI20TA56 PO (11:12)
--- NOTE | 2025-01-24 11:13 | DVHDS2 ---
Discharge Summary Date of Admission January 21, 2025 at 21:45 Date of Discharge: January 24, 2025 Labs/Diagnostic Data: Laboratory Results Test 01/24/25 05:37 01/23/25 15:00 01/22/25 04:36 01/21/25 21:31 POC Glucose 150 mg/dl (70-106) Vitamin B12 Level 559 pg/mL (211-911) Vitamin D 25-Hydroxy 51.1 ng/mL (30.0-100) White Blood Count 9.9 10^3/uL (4.4-10.8) Red Blood Count 4.82 10^6/uL (4.0-5.20) Hemoglobin 13.8 g/dL (12.2-16.2) Hematocrit 41.2 % (36.0-46.0) Mean Corpuscular Volume 85.5 fL (80.0-100.0) Mean Corpuscular Hemoglobin 28.6 pg (28.0-32.0) Mean Corpuscular Hemoglobin Concent 33.5 g/dL (32.0-36.0) Red Cell Distribution Width 13.5 % (11.8-14.3) Platelet Count 206 10^3/uL (140-450) Mean Platelet Volume 10.1 fL (6.9-10.8) Neutrophils (%) (Auto) 52.4 % (37.0-80.0) Lymphocytes (%) (Auto) 38.0 % (10.0-50.0) Monocytes (%) (Auto) 6.8 % (0.0-12.0) Eosinophils (%) (Auto) 2.1 % (0.0-7.0) Basophils (%) (Auto) 0.7 % (0.0-2.0) Neutrophils # (Auto) 5.2 10 ^3/uL (1.6-8.6) Lymphocytes # (Auto) 3.8 10 ^3/uL (0.4-5.4) Monocytes # (Auto) 0.7 10 ^3/uL (0-1.3) Eosinophils # (Auto) 0.2 10 ^3/uL (0-0.8) Basophils # (Auto) 0.1 10 ^3/uL (0-0.2) Nucleated Red Blood Cells 0.1 % Sodium Level 142 mmol/L (136-145) Potassium Level 3.3 mmol/L (3.5-5.1) Chloride Level 103 mmol/L (98-107) Carbon Dioxide Level 28 mmol/L (20-31) Anion Gap 11 (5-15) Blood Urea Nitrogen 16 mg/dL (9-23) Creatinine 0.85 mg/dL (0.550-1.02) Glomerular Filtration Rate Calc 83 mL/min (>90) BUN/Creatinine Ratio 18.8 (10.0-20.0) Serum Glucose 209 mg/dL (74-106) Hemoglobin A1c 9.9 % A1C (<5.7) Calcium Level 10.3 mg/dL (8.7-10.4) Total Bilirubin 1.1 mg/dL (0.2-1.0) Aspartate Amino Transferase (AST) 21 U/L (13-40) Alanine Aminotransferase (ALT) 27 U/L (7-40) Alkaline Phosphatase 98 U/L (46-116) Total Protein 7.2 g/dL (5.7-8.2) Albumin 4.4 g/dL (3.2-4.8) Triglycerides Level 161 mg/dL (< 150) Cholesterol Level 137 mg/dL (< 200) LDL Cholesterol 82 mg/dL (< 100) HDL Cholesterol 36 mg/dL (40-59) Urine Color Yellow (Yellow) Urine Clarity Turbid (Clear) Urine pH 5.5 (5.0-9.0) Urine Specific Julian 1.025 (1.001-1.035) Urine Protein 1+ (Negative) Urine Ketones 1+ (Negative) Urine Blood Trace /uL (Negative) Urine Nitrite Negative (Negative) Urine Bilirubin Negative (Negative) Urine Urobilinogen 3 mg/dL (Negative) Urine Leukocyte Esterase 3+ /uL (Negative) Urine RBC 9 /hpf (0 - 4) Urine Microscopic WBC 391 /HPF (0-5) Urine Squamous Epithelial Cells Few /hpf (<5) Urine Bacteria Many /hpf (None Seen) Urine Mucus Few (None Seen) Urine Glucose Normal mg/dL (Normal) Test 01/21/25 20:53 01/21/25 18:00 Troponin I High Sensitivity < 3 ng/L (</=34) Magnesium Level 1.6 mg/dL (1.6-2.6) Other Laboratory Tests 01/22/25 04:36 Brief Hx & Hospital Course: 49 year old female is complaining of chest pain with extremity numbness for two days. Patient states today she started experiencing dizziness. She took her blood pressure at home and was noted to be elevated. While in the emergency department the patient was evaluated by the provider. Patient was admitted on January 21, 2025 for uncontrolled blood pressure. Patient was seen by cardiology. Echocardiogram was done EF is estimated at 55%. Blood pressure was a medication was adjusted. Patient's lisinopril was increased to 20mg PO twice a day. Patient has a blood pressure cuff at home, and she will be checking her blood pressure daily for one week. She was instructed to follow up with her PCP in one week. There were no complaints or new complaints upon discharge, all questions and concerns were answered. Patient was advised to return to the ER or call 911 if any headaches, dizziness, shortness of breath, chest pain, bleeding, fevers, or worsening of medical condition. Patient/Family was counseled about treatment plan, medications, possible side effects, patient�verbalized understanding. All questions were answered to the best of my ability. The patient symptoms improved and they are okay to be DC. Condition at Discharge: Stable Final Diagnosis/Problems List Unstable angina Hyperlipidemia Benign essential hypertension Obesity DM type II with hyperglycemia Discharge Disposition: Home Discharge Instruct/Medications Diet: Consistent carbohydrate, Cardiac 2g Na,low cholest Activity: No Restrictions, As Tolerated Follow Up/Referral: pcp 1 week Discharge Statement: "Patient was advised to return to the ER or call 911 if any headaches, dizziness, shortness of breath, chest pain, abdominal pain, bleeding, fevers, or worsening of medical condition. Patient was counseled about treatment plan, medications, possible side effects, patient�verbalized understanding. All questions were answered to the best of my ability. This discharge took greater then 30 minutes in planning, reviewing documentation, counseling the patient, and discussing with other team members." ASSESSMENT ASSESSMENT Assessment uncontrolled htn LAVONNE ANSARI NP January 24, 2025 11:13
== END 2025-01-24 13:20 | disposition home or self-care (01) | DRG 198 ==
LOC: ER 17:27 → OVERFLOW 21:45 → TELE-WESTW 01-22 01:44
PROVIDERS: ADMIT Internal Medicine; ATTEND Internal Medicine
DX: I20.0 Unstable angina (principal); N30.01 Acute cystitis with hematuria; I10 Essential (primary) hypertension; E78.5 Hyperlipidemia, unspecified; E66.9 Obesity, unspecified; Z68.30 Body mass index [BMI] 30.0-30.9, adult; E11.65 Type 2 diabetes mellitus with hyperglycemia; Z79.84 Long term (current) use of oral hypoglycemic drugs; Z79.899 Other long term (current) drug therapy; Z82.49 Family history of ischemic heart disease and other diseases of the circulatory system; Z95.1 Presence of aortocoronary bypass graft; Z98.51 Tubal ligation status
CPT/HCPCS: 36415; 70551; 71045; 72040; 80053; 80061; 81001; 82306; 82607; 82962; 83036; 83735; 84484; 85025; 93005; 93306; 96361; 96374; G0378; J1815; J2405

== ENCOUNTER 2025-07-19 20:57 | Emergency (ER) | payer MEDICAID ==
[~2025-07-19] VITALS: Ht 149.9 cm; Wt 63.6 kg
[~2025-07-19 20:57] MED LIST changes: +ATOR20TA50 PO; +BACL20TA PO; +DULO20CA36 PO; +GABA-1308 PO; +GLYB5TAB9 GT; +IBUP-1456 PO; +LISI20TA56 PO; +SITA50TA PO
[2025-07-19 22:41] VITALS: BP 158/104; PULSE 83; RESP 20; TEMP 97.4; O2SAT 96
[2025-07-19] MEDS ORDERED: IBUP-1456 PO (22:43)
[2025-07-19] MEDS ORDERED: METH4PAK PO (22:43)
--- NOTE | 2025-07-19 22:44 | ED.PDOC ---
Musculoskeletal HPI Comments 50-year-old female presents to ER with complaints of bilateral hand pain x3 days. Patient with past medical history significant for neuropathy reports that she has been experiencing 10/10 pain to bilateral hands with associated numbness/tingling to all fingers of bilateral hands x3 days. She rates her current pain a 9/10 and reports that he has been taking ibuprofen for her pain without relief. Patient denies fever, body aches, chills, skin changes, injury or any further symptoms/complaints Chief Complaint: Upper Extremity Time Seen by MD: 21:21 Primary Care Provider: UNKNOWN Reviewed Notes: Nurses Notes, Medications, Allergies Allergies: Coded Allergies: NO KNOWN ALLERGIES (Unverified , 06/24/23) Home Meds Active Scripts Ibuprofen (Ibuprofen) 800 Mg Tab, 1 TAB PO TID PRN, #30 TAB 0 Refills Prov:MILLIE ARIZA 07/19/25 Methylprednisolone (Medrol Dosepak) 4 Mg Mt, 4 MG PO UD, #21 TAB 0 Refills UAD Prov:MILLIE ARIZA 07/19/25 Lisinopril (Lisinopril) 20 Mg Tab, 20 MG PO BID for 30 Days, #60 TAB Prov:LAVONNE ANSARI [employer]AR [employer]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 01/24/25 Nitrofurantoin Monohydrate Mac (Macrobid) 100 Mg Cap, 100 MG PO BID for 7 Days, #14 CAP Prov:RONNY BLISS DO 06/24/23 Valacyclovir Hcl (Valacyclovir Hcl) 500 Mg Tab, 1 TAB PO BID for 7 Days, #14 TAB 11 Refills Prov:RONNY BLISS DO 06/24/23 Prednisone (Prednisone) 20 Mg Tab, 60 MG PO DAILY for 6 Days, #18 TAB Prov:RONNY BLISS DO 06/24/23 Reported Medications Ibuprofen (Ibuprofen) 800 Mg Tab, 1 TAB PO TID, #90 TAB 1 Refill 01/22/25 Baclofen (Baclofen) 20 Mg Tab, 1 TAB PO TID, #90 TAB 2 Refills 01/22/25 Duloxetine HCl (Duloxetine Hydrocloride) 20 Mg Cap, 20 MG PO, CAP 01/22/25 Gabapentin (Gabapentin) 100 Mg Cap, 1 CAP PO TID, #90 CAP 2 Refills 01/22/25 Atorvastatin Calcium (ATORVASTATIN CALCIUM) 20 Mg Tab, 1 TAB PO DAILY, #30 TAB 5 Refills 01/22/25 Glyburide (Micronase) 5 Mg Tb, 5 MG GT, TAB 01/22/25 Sitagliptin Phosphate (Januvia) 50 Mg Tab, 50 MG PO, TAB 01/22/25 Information Source: Patient Mode of Arrival: Ambulatory Past Medical History PAST MEDICAL HISTORY: DM, High Lipids, HTN Past Medical History (Other): Neuropathy 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: No Pertinent 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 History Family History Family History: Unknown Social History Smoker: Non-Smoker Alcohol: Denies ETOH Use Drugs: Denies Drug Use Lives In: Home Constitutional: denies: chills, diaphoresis, fatigue, fever, malaise, sweats, weakness, others EENTM: denies: blurred vision, double vision, ear bleeding, ear discharge, ear drainage, ear pain, ear ringing, eye pain, eye redness, hearing loss, mouth manuelito n, mouth swelling, nasal discharge, nose bleeding, nose congestion, nose pain, photophobia, tearing, throat pain, throat swelling, voice changes, others Respiratory: denies: cough, hemoptysis, orthopnea, SOB at rest, shortness of breath, SOB with excertion, stridor, wheezing, others Cardiovascular: denies: chest pain, dizzy spells, diaphoresis, Dyspnea on exertion, edema, irregular heart beat, left arm pain, lightheadedness, palpitations, PND, syncope, others Gastrointestinal: denies: abdomen distended, abdominal pain, blood streaked bowels, constipated, diarrhea, dysphagia, difficulty swallowing, hematemesis, melena, nausea, poor appetite, poor fluid intake, rectal bleeding, rectal pain, vomiting, others Genitourinary: denies: abnormal vagina bleeding, burning, dyspareunia, dysuria, flank pain, frequency, hematuria, incontinence, pain, , vagina discharge, urgency, others Neurological: reports: others (As stated in HPI) Musculoskeletal: reports: others (As stated in HPI) Integumetry: denies: bruises, change in color, change in hair/nails, dryness, laceration, lesions, lumps, rash, wounds, others Allergic/Immunocompromised: denies: Difficulty Healing, Frequent Infections, Hives, Itching, others Hematologic/Lymphatic: denies: anemia, blood clots, easy bleeding, easy bru ising, swollen glands, others Endocrine: denies: excessive hunger, excessive sweating, excessive thirst, e xcessive urination, flushing, intolerance to cold, intolerance to heat, unexplained weight gain, unexplained weight loss, others Psychiatric: denies: anxiety, bipolar disorder, depression, hopeless, panic disorder, schizophrenia, sleepless, suicidal, others Physical Exam General Appearance: No Apparent Distress HEENT: PERRL/EOMI Neck: Full Range of Motion, Non-Tender, Normal Respiratory: Chest Non-Tender, Lungs Clear, No Accessory Muscle Use, No Respiratory Distress, Normal Breath Sounds Cardiovascular: No Murmur, No Gallop, Regular Rate/Rhythm Breast Exam: Deferred Gastrointestinal: NOT DONE Genitalia: Deferred Pelvic: Deferred Rectal: Deferred Extremities: Normal capillary refill, Normal range of motion Musculoskeletal : Extremity Location: Hand (Slight TTP diffuse to all joints of bilateral hands. No swelling/erythema/skin changes noted. Positive Phalen's test bilaterally. Manager Culinary strength intact and equal bilaterally. Pulses intact) Neurologic: Alert, staff antisubmarine officer II-XII nml as Tested, No Motor Deficits, Normal Affect, Normal Mood, No Sensory Deficits Cerebellar Function: Normal Reflexes: Normal Skin: Dry, Normal Color, Warm Peripheral Pulses: 2+ Radial (R), 2+ Radial (L), 2+ Brachial (R), 2+ Brachial (L) Lymphatic: No Adenopathy Was a procedure done? Was a procedure done?: No Sedation Sedation?: No Differential Diagnosis EXT Differential Diagnosis: Cellulitis, Fracture, Gout, Rheumatoid, Septic, Neurovascular injury X-Ray, Labs, Meds, VS Vital Signs Date Time Temp Pulse Resp B/P (MAP) Pulse Ox O2 Delivery O2 Flow Rate FiO2 07/19/25 22:41 97.4 83 20 158/104 (122) 96 97.4 07/19/25 22:41 Room Air* 0 21 07/19/25 21:04 97.4 83 20 158/104 96 97.4 Prednisone 20 mg p.o. ordered Ibuprofen 800 mg p.o. ordered Patient neurovascularly intact and reported improvement in symptoms prior to discharge Advised to follow up with PCP and orthopedics/hand specialist in 1-2 days Patient verbalized understanding and agreeable with current plan of care Advised to return to ER immediately if symptoms worsen Time of 1ST Reevaluation: 22:24 Reevaluation 1ST: N/A Patient Education/Counseling: Diagnosis, Treatment, Prognosis, Need For Follow Up Family Education/Counseling: No Family Present Departure 1 Departure Time of Disposition: 22:42 Impression: Primary Impression: Neuropathy of left hand Additional Impressions: Neuropathy of right hand Arthralgia of both hands Disposition: 01 HOME / SELF CARE / HOMELESS Condition: Stable e-Prescriptions Ibuprofen (Ibuprofen) 800 Mg Tab 1 TAB PO TID PRN, #30 TAB 0 Refills Prov: MILLIE ARIZA 07/19/25 Methylprednisolone (Medrol Dosepak) 4 Mg Mt 4 MG PO UD, #21 TAB 0 Refills UAD Prov: MILLIE ARIZA 07/19/25 Discharged With: Friend Critical Care Note Critical Care Time?: No Stability Stability form required: No Heart Score Heart Score: Heart Score Response (Comments) Value History N/A 0 EKG N/A 0 Age N/A 0 Risk Factors N/A 0 Troponin N/A 0 Total 0 MILLIE ARIZA Jul 19, 2025 22:44
[2025-07-19] MEDS: predniSONE 20 MG TAB PO ONE (22:48)
[2025-07-19] MEDS: IBUPROFEN 800 MG TAB PO ONE (22:48)
== END 2025-07-19 22:53 | disposition home or self-care (01) ==
LOC: ER 20:57
DX: G56.92 Unspecified mononeuropathy of left upper limb (principal); G56.91 Unspecified mononeuropathy of right upper limb; M79.642 Pain in left hand; M79.641 Pain in right hand; I10 Essential (primary) hypertension; Z79.899 Other long term (current) drug therapy; Z98.51 Tubal ligation status
CPT/HCPCS: 99283; J7512